=== PATIENT | female | born 1980 | race Caucasian/White ===

== ENCOUNTER → 2018-03-03 | Outpatient (CLI) | payer OTHER ==
--- NOTE | 2018-03-06 11:07 | POLYSOMNOGRAPH REPORT ---
CLINICAL DATA: A 38-year-old female with BMI of 36.7 referred with episodes of choking in the middle of night with snoring but no daytime fatigue. On the evening of 03/04/2018, a home sleep apnea test was performed using a Card[employer] type 3 monitor. RECORDING RESULTS: Total recording time was 10 hours. Patient monitoring time and estimated sleep time was 5.2 hours. RESPIRATORY DATA: Mild sleep apnea was documented. The DYLAN was 9.4. There were 13 obstructive and 1 central apneic episodes. There were 35 hypopneic episodes; the longest respiratory event was 61 seconds. OXIMETRY DATA: Nocturnal hypoxemia was seen. Oxygen hansa was 73%. Mean saturation was 94%. Time below 89% was 9 minutes. HEART RATE DATA: Heart rates ranged from 52-67 beats per minute. SNORING DATA: Snoring was recorded throughout the night. WATCH LEADER'S COMMENTS: Hypopneas and apneas were seen especially when the patient was supine on her back. She did have significant desaturations down into the 70s. She only had the equipment on for just over 5 hours from 12:50 a.m. until 6:02 a.m. IMPRESSION: Mild sleep apnea/hypopnea with nocturnal hypoxemia. RECOMMENDATIONS: The patient may benefit from weight loss, use of an oral appliance, positional therapy, or use of CPAP. Clinical correlation is needed. [place]
== END | disposition home or self-care (01) ==
LOC: C.NEUR 09:50
PROVIDERS: ATTEND Internal Medicine Pulmonary Disease
DX: R06.89 Other abnormalities of breathing (principal); H10.10 Acute atopic conjunctivitis, unspecified eye; J30.9 Allergic rhinitis, unspecified